=== PATIENT | male | born 1955 | race Caucasian/White ===

== ENCOUNTER 2019-12-11 12:46 | Emergency (ER) | payer MEDICARE, SELFPAY ==
[2019-12-11] VITALS (37 sets, daily range): BP systolic 117–250; BP diastolic 77–161; PULSE 59–124; RESP 12–28; TEMP 36.6; O2SAT 91–100
[2019-12-11] MEDS: Succinylcholine 100 MG/5 ML SYR IVP (12:53)
[2019-12-11] MEDS: Etomidate 20 MG/10 ML VIAL IVP (12:53)
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
[2019-12-11 13:10] LABS: Abs Immature Grans 0.13 k/cumm (0.0-0.09); Absolute Basophil Count 0.05 k/cumm (0.0-0.2); Absolute Eosinophil Count 0.04 k/cumm (0.0-0.7); Absolute Lymphocyte Count 2.74 k/cumm (1.2-3.4); Absolute Monocyte Count 1.08 k/cumm (0.11-0.7); Basophils % 0.4; Eosinophils % 0.3; HCT 42.7 % (40.0-50.0); HGB 14.9 g/dL (13.5-17.5); Mean Corp. HGB Concentration 34.9 g/dL (32.0-36.0); Mean Corpuscular Hemoglobin 35.6 pg (27.0-33.0); Mean Corpuscular Volume 101.9 fL (80-95); Mean Platelet Volume 10.5 fL (8.0-11.0); Monocytes % 8.3; Platelet Count 348 x1000/uL (130-400); RBC 4.19 m/cumm (4.50-6.00); RBC Distribution Width 14.8 % (11.8-14.1); White Blood Cell Count 13.05 k/cumm (4.4-10.8)
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
[2019-12-11] MEDS: Midazolam 2 MG/2 ML VIAL 4 MG IVP (13:14)
[2019-12-11] MEDS: MIDAZOLAM 50 MG in Normal Saline 90 ML IV (13:15)
[2019-12-11] MEDS: PROPOFOL 1,000 MG/100 ML BTL 4.218 MG IVPB (13:21)
[2019-12-11 13:22] LABS: PTT Activated 22.6 sec (21.0-31.4); Prothrombin Time 10.1 sec (9.3-11.0)
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
[2019-12-11 13:28] LABS: ALT 20 U/L (16-63); AST 26 U/L (15-37); Albumin 3.5 g/dL (3.4-5.0); Alkaline Phosphatase 81 U/L (46-116); Anion Gap 27.5 mmol/L (3-11); BUN 7 mg/dL (7-18); Bilirubin, Total 0.5 mg/dL (0.2-1.0); CO2 12.5 mmol/L (21.0-32.0); CREATININE 1.62 mg/dL (0.70-1.30); Chloride 99 mmol/L (98-107); Estimated GFR 42.84 (mL/min/1.73m2); Glucose 179 mg/dL (74-106); Sodium 139 mmol/L (136-145); Total Protein 7.5 g/dL (6.4-8.2)
[2019-12-11 13:29] LABS: Troponin I < 0.05 ng/mL (<0.06)
[2019-12-11] MEDS: Normal Saline - Diluent 50 ML VIAL IV (13:29)
[2019-12-11] MEDS: Omnipaque 350 MG/ML 100 ML BTL IJ (13:30)
--- NOTE | 2019-12-11 13:30 | DI.CT_ITS ---
CLINICAL HISTORY: TECHNIQUE: COMPARISON: No exams were available for comparison FINDINGS: Thoracic spine recons. Mild compression deformities are seen of T6, T11 and T12 vertebral bodies. These are of indeterminat e age. No definite acute thoracic spine fracture is identified. Degenerative changes are present th roughout the thoracic spine. Lumbar spine recons. No acute fracture or subluxation is seen in the lumbar spine. There are degenerative changes present throughout the lumbar spine. IMPRESSION: 1. No acute fractures or subluxations in the spine. 2. Mild compression deformities of indeterminate age are seen of the vertebral bodies of T6, T11 and T12.
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
[2019-12-11 13:50] LABS: ETHANOL BLOOD < 3.0 mg/dL (<3)
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
[2019-12-11 14:26] LABS: BE -3.3 mmol/L (-3-3); HCO3 23 mmol/L (22-28); pCO2 45 mmHg (34-47); pH 7.31 (7.35-7.45); pO2 105 mmHg (83-108); sO2 97 % (94-98); tCO2 21 mmol/L (22-29)
[2019-12-11 14:27] LABS: FIO2 60 %; Site Right Radial
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
[2019-12-11 14:39] LABS: Bilirubin Negative (Negative); Blood Small (Negative); Clarity Clear (Clear); Glucose Negative (Negative); Ketones Negative (Negative); Leukocyte Esterase Negative (Negative); Nitrite Negative (Negative); Specific Gravity 1.015 (1.005-1.025); Urobilinogen 0.2 EU/dL (Up TO 0.2); pH 6.5 (5-8)
[2019-12-11 14:47] LABS: Bacteria Negative HPF (Negative); C & S Indicated? Yes; Casts Negative LPF (Negative); Crystals Negative HPF (Negative); Epithelial Cells Few HPF (Negative); Mucus Negative (Negative)
[2019-12-11] MEDS: POTASSIUM CHLORIDE 10 MEQ/100 ML BAG 100 MEQ IVPB (14:52)
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
[2019-12-11 15:04] LABS: *AMPHETAMINES SCREEN URINE Negative (Negative); *BARBITURATES SCREEN URINE Negative (Negative); *BENZODIAZEPINES SCREEN URINE POSITIVE (Negative); Cannabinoids THC POSITIVE (Negative); Cocaine Screen,Urine Negative (Negative); METHADONE URINE SCREEN Negative (Negative); OPIATES URINE SCREEN Negative (Negative)
[2019-12-11 15:07] LABS: Tricyclic Antidepressants Negative (Negative)
[2019-12-11] MEDS: LORazepam 2 MG/ML VIAL IVP (15:09)
--- NOTE | 2019-12-11 15:35 | DI.RAD_ITS ---
EXAM: 2D digital imaging was performed. CLINICAL HISTORY: s/p ogtube. COMPARISON: No exams were available for comparison TECHNIQUE: Supine views of the abdomen performed. FINDINGS: BOWEL GAS PATTERN: Mildly dilated loops of bowel are seen in the abdomen. This may represent ileus. Obstruction cannot be entirely excluded. CALCIFICATIONS: No suspicious calcifications are seen. OSSEOUS STRUCTURES: Normal for age. OTHER FINDINGS: Contrast is seen in the mildly dilated renal collecting systems. The patient has a e nteric feeding tube with its tip in good position within the stomach. IMPRESSION: 1. Mildly dilated loops of bowel. This may represent ileus. Obstruction cannot be excluded. 2. Enteric feeding tube in good position with its tip in the stomach. DATA REPOSITORY: RADIATION DOSE DELIVERED:
--- NOTE | 2019-12-11 15:47 | DI.VRAD_ITS ---
PROCEDURE INFORMATION: Exam: XR Abdomen, 1 View Exam date and time: 12/11/2019 3:35 PM Age: 64 years old Clinical indication: Device placement; Gi device; Nasogastric tube TECHNIQUE: Imaging protocol: XR of the abdomen. Views: Frontal supine view of the abdomen. 1 View. COMPARISON: CT CHEST/ABD/PEL W 12/11/2019 1:58 PM FINDINGS: Tubes, catheters and devices: An enteric feeding tube is present, with its tip located in the stomach in good position. Gastrointestinal tract: Multiple loops of distended bowel may represent obstruction or ileus. Bones/joints: Unremarkable. IMPRESSION: 1. Multiple loops of distended bowel may represent obstruction or ileus. 2. An enteric feeding tube is present, with its tip located in the stomach in good position. Dictated and Authenticated by: Clarence Espino MD. Ordering:KING Pelayo MD
[2019-12-11] MEDS: PROPOFOL 1,000 MG/100 ML BTL 52.3 MG IVPB (16:04)
[2019-12-12 15:01] LABS: COVID-19 RT-PCR UVMMC Result Negative (Negative)
== END 2019-12-11 16:31 | disposition short-term general hospital (02) ==
PROVIDERS: Physician Assistant; Emergency Provider Emergency Medicine
DX: R41.82 Altered mental status, unspecified (principal); G40.909 Epilepsy, unspecified, not intractable, without status epilepticus; T46.5X6A Underdosing of other antihypertensive drugs, initial encounter; Z91.14 Patient's other noncompliance with medication regimen; R40.20 Unspecified coma; F10.20 Alcohol dependence, uncomplicated; R93.41 Abnormal radiologic findings on diagnostic imaging of renal pelvis, ureter, or bladder; J98.11 Atelectasis; I10 Essential (primary) hypertension
CPT/HCPCS: 31500; 36415; 51702; 71045; 74177; 80053; 80307; 82805; 86850; 86900; 86901; 93005; 96365; 96366; 96368; 99291; U0003; 36600; 70450; 71260; 72125; 74018; 80320; 81003; 81015; 83735; 84484; 85025; 85610; 85730; 87086; 93010; J2060; J2250; J3480; J3490

== ENCOUNTER 2020-06-14 21:20 | Outpatient (REF) | payer MEDICARE, SELFPAY ==
[2020-06-14 21:12] LABS: Anion Gap 5.9 mmol/L (3-11); BUN 13 mg/dL (7-18); CO2 29.1 mmol/L (21.0-32.0); CREATININE 1.11 mg/dL (0.70-1.30); Calcium 9.2 mg/dL (8.5-10.1); Calculated LDL 133 mg/dL (<100); Chloride 96 mmol/L (98-107); Cholesterol 192 mg/dL (<200); Glucose 91 mg/dL (74-106); HDL Cholesterol 38 mg/dL (40-60); Potassium 4.8 mmol/L (3.5-5.1); Sodium 131 mmol/L (136-145); Triglyceride 106 mg/dL (<150)
[2020-06-14 21:26] LABS: Hemoglobin A1C 5.3 % (<5.7)
== END 2020-06-14 21:40 ==
LOC: LBN 21:20
PROVIDERS: PCP Nurse Practitioner Family; Visit Provider Nurse Practitioner Family
DX: R73.01 Impaired fasting glucose (principal); I10 Essential (primary) hypertension
CPT/HCPCS: 80048; 80061; 83036

== ENCOUNTER 2020-08-21 12:52 | Emergency (ER) | payer MEDICARE, SELFPAY ==
[2020-08-21] VITALS (64 sets, daily range): BP systolic 126–248; BP diastolic 82–158; PULSE 97–127; RESP 12–56; TEMP 38.1–39.3; O2SAT 94–100
--- NOTE | 2020-08-21 12:30 | RT.EKG_ITS ---
APPROVED REPORT Exam: Resting ECG Patient Location: E HR:109 bpm ECG Measurements Heart Rate 109 AXIS MS 181 P 65 QRSd 149 QRS 245 QT 344 T 37 QTc 465 Conclusion Sinus tachycardia...rate> 99 I have reviewed and interpreted ECG and agree with software generated interpretation.
[2020-08-21] MEDS: LORazepam 2 MG/ML VIAL (12:59)
[2020-08-21] MEDS: Normal Saline 1,000 ML 1000 ML IV (13:00)
--- NOTE | 2020-08-21 13:00 | DI.CT_ITS ---
EXAM: CT HEAD CERVICAL SPINE WO COMPARISON: CT CT HEAD CERVICAL SPINE WO from 12/11/2019 FINDINGS: CT examination of the cervical spine was performed without contrast administration. There are moderate degenerative changes of the cervical spine. There is no evidence of acute cervical spine fracture or dislocation. Intervertebral disc spaces are well maintained. Tracheolaryngeal structures appear intact. No cervical mass or adenopathy. Noncontrast cranial CT was performed. There is moderate generalized cerebral atrophy. No evidence of acute intracranial hemorrhage, mass effect, or midline shift. No calvarial fracture. The orbital and temporal bone structures appear intact. Visualized mastoid air cells and paranasal sinuses appear clear. IMPRESSION: No evidence of acute cervical spine injury. No evidence of acute intracranial injury. RADIATION DOSE DELIVERED: 1,824.36mGy.cm Total DLP 1,824.36mGy.cm Total DLP DATA REPOSITORY: All CT scans at this facility are submitted to the National Radiology Data Registry (NRDR) Dose Index Registry (DIR) with the [employer] ([employer]). RADIATION OPTIMIZATION: All CT scans at this facility use at least one of these dose optimization te chniques: automated exposure control; mA and/or kV adjustment per patient size (includes targeted exa ms where dose is matched to clinical indication); or iterative reconstruction.
[2020-08-21] MEDS: Etomidate 20 MG/10 ML VIAL IVP (13:01)
[2020-08-21] MEDS: Succinylcholine 200 MG/10 ML VIAL 100 MG IVP (13:02)
[2020-08-21] MEDS: PROPOFOL 1,000 MG/100 ML BTL 2.5 MG (13:13)
--- NOTE | 2020-08-21 13:15 | DI.CT_ITS ---
EXAM: CT CHEST PE ABD PELVIS W TECHNIQUE: CT examination of the chest, abdomen, and pelvis was performed with bolus infusion of 100 cc of Omnipaque 350. COMPARISON: CT CT THORACIC LUMBAR SPINE REC from 12/11/[address] CHEST/ABD/PEL W from 12/11/2019 FINDINGS: There are endotracheal and nasogastric tubes in position. The NG tube terminates in the fundus of th e stomach. ET tube terminates in appropriate position in trachea about 3.5 cm above the brooke. There is no evidence of a thoracic vascular injury. Ascending thoracic aorta is mildly ectatic at 40 millimeters. There is predominant collapse of the left lower lobe, there is narrowing of the left l ower lobe bronchus, no gross hilar mass but the possibility of endobronchial obstruction is not exclu ded. Note is also made dependent atelectasis base.. No pneumothorax or pleural effusion. No mediast inal hematoma. No adenopathy in the chest. Tracheobronchial tree appears intact. The liver is grossly unremarkable although obscured by motion artifact. Pancreas shows multiple calc ifications and atrophy period. Gallbladder and bile ducts are normal. Spleen is not identified, correlation requested regarding history of splenectomy. Adrenals appear normal bilaterally. There is bilateral hydronephrosis and hydroureter to the level of the urinary bladder. There is a Fo dede catheter in the urinary bladder. There appears to be significant wall thickening the bladder sidra dder is collapsed. Bladder floor mass not excluded, prostatic enlargement noted with heterogeneous i rregular appearance of the prostate, nonspecific. No urinary tract calcifications seen. No renal ma ss identified apart from apparent small cyst of the upper pole of the left kidney. No abdominal or pelvic vascular injury seen. There is approximately 50 percent luminal diameter sten osis of the celiac trunk at its origin. No other significant visceral branch stenosis seen. No abdo juan j aortic aneurysm. No abdominal or pelvic adenopathy. No significant abdominal wall hernia or he matoma. No evidence of bowel injury. There are compression fractures of the T12 and L1 vertebral bodies which were not present on prior CT examination of December 11, 2019. There is mild loss of height of T12 and L1 vertebral bodies and mild r etropulsion superior portions of the posterior vertebral cortex of both T12 and L1, approximately 4 m illimeters retropulsed at T12 and 5 millimeters retropulsed at L1. No posterior element fracture curtis ntified involving either vertebral body. Old multiple thoracic compression fractures seen as noted o n prior CT. IMPRESSION: ET tube and NG tube in appropriate position. Left lower lobe collapse and right lower lobe dependent atelectasis. Endobronchial lesion of left lo wer lobe bronchus not excluded. T12 and L1 vertebral body compression fractures which appear to be acute, mild loss of height of vert ebral body, 4 millimeter retropulsion posterior cortex T12 and 5 millimeter retropulsion posterior co rtex L1. Bilateral hydronephrosis and hydroureter, markedly thickened urinary bladder wall, Gutierrez catheter in position, prostate enlargement and heterogeneous appearance, bladder floor mass not excluded. Cystos copy recommended for further evaluation. No other significant acute findings. RADIATION DOSE DELIVERED: 1,200.27mGy.cm Total DLP 1,200.27mGy.cm Total DLP DATA REPOSITORY: All CT scans at this facility are submitted to the National Radiology Data Registry (NRDR) Dose Index Registry (DIR) with the [employer] ([employer]). RADIATION OPTIMIZATION: All CT scans at this facility use at least one of these dose optimization te chniques: automated exposure control; mA and/or kV adjustment per patient size (includes targeted exa ms where dose is matched to clinical indication); or iterative reconstruction.
[2020-08-21 13:16] LABS: Lactate 9.3 mmol/L (0.6-1.4)
[2020-08-21 13:17] LABS: Abs Immature Grans 0.46 10^3/uL (0.0-0.06); HCT 50.4 % (40.0-50.0); HGB 16.8 g/dL (13.5-17.5); Immature Grans % 1.5; MCH 32.6 pg (27.0-33.0); MCHC 33.3 % (32.0-36.0); MCV 97.9 fL (80-95); MPV 9.7 fL (8.0-11.0); Nucleated RBC 0 %; RBC 5.15 10^6/uL (4.36-5.78); RDW 14.6 % (11.8-14.1); RDW-SD 53.2 fL
[2020-08-21 13:18] LABS: Source Nasopharynx
[2020-08-21] MEDS: PROPOFOL 1,000 MG/100 ML BTL 2.49 MG IVPB (13:20)
[2020-08-21 13:26] LABS: WBC 29.87 10^3/uL (4.4-10.8)
--- NOTE | 2020-08-21 13:27 | ED.GENADUL_ITS ---
Discharge Plan Disposition Patient Disposition: [facility] Condition: Critical Discharge Details Clinical Impression: Unresponsive state, Seizure, History of alcohol abuse, Pneumonia, Bladder outlet obstruction, Burst fracture of lumbar vertebra, Burst fracture of T12 vertebra Primary Care Provider: Lizeth Marshall ED Provider: Miya Canas Home Meds and New Rx's Prescriptions: No Action levetiracetam 500 mg tablet 500 mg PO BID Qty: 180 RF: 4 amlodipine 5 mg tablet 5 mg PO DAILY Qty: 90 RF: 4 lisinopril 40 mg tablet 40 mg PO DAILY Qty: 90 RF: 4 Discharge Data Discharge Date/Time-TO BE ENTERED AT DEPARTURE: 08/21/20 18:09 Medical Decision Making 55-year-old male with a history of alcohol abuse, alcohol withdrawal seizure, hypertension, Ric-Pick disease and splenectomy presents after found unresponsive at home incontinent of urine. EMS reported glucose 130. EMS reported a 2-minute tonic-clonic seizure in route for which they gave Versed and called the ED advising of possible need for intubation on arrival. Review of records note that patient had been intubated for airway protection for alcohol withdrawal seizure last year. Patient unresponsive and breathing on arrival with bag mask ventilations being given. Heart rate 120s and sinus on the monitor. Oxygen saturation 95% with BMP. Blood pressure significantly hypertensive. Patient intubated shortly after arrival after 20 of etomidate and 100 mg of succinylcholine given. Patient appeared to have a brief episode approximately 10 to 20 seconds of seizure like activity for which he was given 2 mg of Ativan. Portable chest x-ray at bedside confirmed ET tube placement. Patient has coarse breath sounds bilaterally, worse on right side. No evidence of trauma on exam. Abdomen soft without rigidity. 1330 --patient noted to be seizing by nursing. 2 g of Ativan and 2 g of Keppra IV ordered. 1430 -- CT head and cervical spine negative. Patient remaining sedated on propofol and Versed drip. Labs reviewed. White blood cell count 29. ABG notes findings consistent with a metabolic acidosis with a pH of 7.29, PCO2 40, PO2 154, bicarb 19. Lactate 9.3. Troponin elevated but indeterminate at 0.1. Urinalysis negative for infection. UDS positive for THC. Alcohol level negative. Rapid Covid swab negative. EKG notes a rate of 109, sinus, no STEMI, nondiagnostic. Case discussed with hospitalist will accepts patient for admission. 1530 -- CT chest abdomen pelvis notes left lower lobe collapse/atelectasis versus endobronchial lesion. Also noted T12 and L1 compression fractures with posterior retropulsion. Also noted bilateral hydronephrosis and hydroureter with prostatic enlargement, bladder wall mass not excluded. Imaging reviewed with Dr. Pickering who notes that this is likely consistent with chronic bladder outlet obstruction and agreed with continuing Gutierrez which was placed shortly after his arrival to the ED. He recommends continued treatment for his acute medical issues at this time and will evaluate once he is improving and stabilized for likely cystoscopy. 1630 --imaging reviewed with Dr. Ludwig who noted the T12 and L1 compression fractures to be acute both fractures and is recommending transfer to [facility] to be evaluated by spine as he is unresponsive and unable to examine, needs a brace which is not available here as well as a dedicated MRI. 1645 --repeat troponin uptrending at 0.21. Repeat EKG notes a rate of 103, sinus, no STEMI, nondiagnostic. Case discussed with [facility] critical care Dr. Howell who accepts patient for transfer. Discussed with patient's sister Rose Marie who is listed as his contact lens blocker who ca lled the ER. She was informed of patient's results and plan. Patient has a dog at home and she or her sister will check up on him. Medical Records Medical records reviewed: Yes I reviewed the patient's medical records. Imaging Data Radiologic Study: Radiologist's impression: XR PORTABLE CHEST AP CLINICAL HISTORY: ams TECHNIQUE: COMPARISON: CR,XR XR PORTABLE CHEST AP POST LINE from 12/11/[address] THORACIC LUMBAR SPINE REC from 12/11/2019 FINDINGS: Portable AP view of the chest was obtained at 1330 hours. There is an endotracheal tube in good position. There is an NG tube in good position. Cardiac size is within normal limits. Retrocardiac portion of the lung is obscured. Question minimal infiltrates present in right mid lung, otherwise lungs appear clear. No gross pleural effusion identified on this frontal film. IMPRESSION: Question minimal right mid lung infiltrate, appropriate follow-up radiographs requested. Retrocardiac radiodensities not excluded, follow-up PA and lateral chest or chest CT should be considered. CT HEAD CERVICAL SPINE WO COMPARISON: CT CT HEAD CERVICAL SPINE WO from 12/11/2019 FINDINGS: CT examination of the cervical spine was performed without contrast administration. There are moderate degenerative changes of the cervical spine. There is no evidence of acute cervical spine fracture or dislocation. Intervertebral disc spaces are well maintained. Tracheolaryngeal structures appear intact. No cervical mass or adenopathy. Noncontrast cranial CT was performed. There is moderate generalized cerebral atrophy. No evidence of acute intracranial hemorrhage, mass effect, or midline shift. No calvarial fracture. The orbital and temporal bone structures appear intact. Visualized mastoid air cells and paranasal sinuses appear clear. IMPRESSION: No evidence of acute cervical spine injury. No evidence of acute intracranial injury. CT CHEST PE ABD PELVIS W TECHNIQUE: CT examination of the chest, abdomen, and pelvis was performed with bolus infusion of 100 cc of Omnipaque 350. COMPARISON: CT CT THORACIC LUMBAR SPINE REC from 12/11/[address] CHEST/ABD/PEL W from 12/11/2019 FINDINGS: There are endotracheal and nasogastric tubes in position. The NG tube terminates in the fundus of the stomach. ET tube terminates in appropriate position in trachea about 3.5 cm above the brooke. There is no evidence of a thoracic vascular injury. Ascending thoracic aorta is mildly ectatic at 40 millimeters. There is predominant collapse of the left lower lobe, there is narrowing of the left lower lobe bronchus, no gross hilar mass but the possibility of endobronchial obstruction is not excluded. Note is also made dependent atelectasis base.. No pneumothorax or pleural effusion. No mediastinal hematoma. No adenopathy in the chest. Tracheobronchial tree appears intact. The liver is grossly unremarkable although obscured by motion artifact. Pancreas shows multiple calcifications and atrophy period. Gallbladder and bile ducts are normal. Spleen is not identified, correlation requested regarding history of splenectomy. Adrenals appear normal bilaterally. There is bilateral hydronephrosis and hydroureter to the level of the urinary bladder. There is a Gutierrez catheter in the urinary bladder. There appears to be significant wall thickening the bladder bladder is collapsed. Bladder floor mass not excluded, prostatic enlargement noted with heterogeneous irregular appearance of the prostate, nonspecific. No urinary tract calcifications seen. No renal mass identified apart from apparent small cyst of the upper pole of the left kidney. No abdominal or pelvic vascular injury seen. There is approximately 50 percent luminal diameter stenosis of the celiac trunk at its origin. No other significant visceral branch stenosis seen. No abdominal aortic aneurysm. No abdominal or pelvic adenopathy. No significant abdominal wall hernia or hematoma. No evidence of bowel injury. There are compression fractures of the T12 and L1 vertebral bodies which were not present on prior CT examination of December 11, 2019. There is mild loss of height of T12 and L1 vertebral bodies and mild retropulsion superior portions of the posterior vertebral cortex of both T12 and L1, approximately 4 millimeters retropulsed at T12 and 5 millimeters retropulsed at L1. No posterior element fracture identified involving either vertebral body. Old multiple thoracic compression fractures seen as noted on prior CT. IMPRESSION: ET tube and NG tube in appropriate position. Left lower lobe collapse and right lower lobe dependent atelectasis. Endobronchial lesion of left lower lobe bronchus not excluded. T12 and L1 vertebral body compression fractures which appear to be acute, mild loss of height of vertebral body, 4 millimeter retropulsion posterior cortex T12 and 5 millimeter retropulsion posterior cortex L1. Bilateral hydronephrosis and hydroureter, markedly thickened urinary bladder wall, Gutierrez catheter in position, prostate enlargement and heterogeneous appearance, bladder floor mass not excluded. Cystoscopy recommended for further evaluation. No other significant acute findings. Lab Data Lab results reviewed: Yes I reviewed the patient's lab results. Labs: 08/21/20 13:01 Blood Blood Culture - Pending 08/21/20 13:54 Urine - Reflex from Ua Urine Culture - Pending 08/21/20 13:27 Blood Blood Culture - Pending Laboratory Tests Range/Units 08/21/20 08/21/20 08/21/20 13:01 13:01 13:01 WBC (4.4-10.8) 10^3/uL 29.87 H* RBC (4.36-5.78) 10^6/uL 5.15 Hgb (13.5-17.5) g/dL 16.8 Hct (40.0-50.0) % 50.4 H MCV (80-95) fL 97.9 H MCH (27.0-33.0) pg 32.6 MCHC (32.0-36.0) % 33.3 RDW (11.8-14.1) % 14.6 H Plt Count (130-400) 10^3/uL 457 H MPV (8.0-11.0) fL 9.7 Immature Gran % 1.5 Neutrophils % 91.4 Lymphocytes % 2.7 Monocytes % 4.1 Eosinophils % 0.0 Basophils % 0.3 Nucleated RBC % % 0 Absolute Neutrophils (1.2-6.7) 10^3/uL 27.30 H Absolute Lymphocytes (1.2-3.4) 10^3/uL 0.81 L Absolute Monocytes (0.1-0.8) 10^3/uL 1.22 H Absolute Eosinophils (0.0-0.7) 10^3/uL 0.00 Absolute Basophils (0.0-0.2) 10^3/uL 0.09 RBC Morphology See below Poikilocytosis 1+ PT (9.3-11.0) sec 10.1 INR (0.9-1.1) 1.0 APTT (21.0-27.5) sec 27.9 H ABG Sample Site ABG pH (7.35-7.45) ABG pCO2 (35-45) mmHg ABG pO2 (80-105) mmHg ABG HCO3 (22-26) mmol/L ABG Total CO2 (23-27) mmol/L ABG O2 Saturation (95-98) % ABG Base Excess (-2-3) mmol/L VBG Lactate (0.6-1.4) mmol/L Oxygen Liter Flow L FiO2 % Sodium (136-145) mmol/L 142 Potassium (3.5-5.1) mmol/L 3.7 Chloride (98-107) mmol/L 104 Carbon Dioxide (21.0-32.0) mmol/L 17.1 L Anion Gap (3-11) mmol/L 20.9 H BUN (7-18) mg/dL 17 Creatinine (0.70-1.30) mg/dL 1.7 H Estimated GFR/1.73 m2 (mL/min/1.73m2) 40.40 Glucose (74-106) mg/dL 132 H Calcium (8.5-10.1) mg/dL 9.6 Magnesium (1.8-2.4) mg/dL 2.7 H Total Bilirubin (0.2-1.0) mg/dL 0.4 AST (15-37) U/L 56 H ALT (16-63) U/L 43 Alkaline Phosphatase (46-116) U/L 119 H Troponin I (<0.06) ng/mL 0.10 H* Total Protein (6.4-8.2) g/dL 9.2 H Albumin (3.4-5.0) g/dL 4.1 Procalcitonin ng/mL Urine Color (Yellow) Urine Clarity (Clear) Urine pH (5-8) Ur Specific [place] (1.005-1.025) Urine Protein (Negative) mg/dL Urine Ketones (Negative) mg/dL Urine Blood (Negative) Urine Nitrite (Negative) Urine Bilirubin (Negative) Urine Urobilinogen (Up TO 0.2) EU/dL Ur Leukocyte Esterase (Negative) Urine RBC (0-2) HPF Urine WBC (0-5) HPF Ur Epithelial Cells (Negative) HPF Urine Crystals (Negative) HPF Urine Bacteria (Negative) HPF Urine Casts (Negative) LPF Urine Mucus (Negative) Ur Culture Indicated? Urine Glucose (Negative) mg/dL Urine Opiates Screen (Negative) Urine Methadone Screen (Negative) Ur Barbiturates Screen (Negative) Ur Tricyclics Screen (Negative) Ur Amphetamines Screen (Negative) U Benzodiazepines Scrn (Negative) Urine Cocaine Screen (Negative) Ur THC Screen (Negative) Ethyl Alcohol (<3) mg/dL COVID-19 Source SARS-CoV-2 (PCR) (Negative) Influenza Type A (PCR) (Negative) Influenza Type B (PCR) (Negative) RSV (PCR) (Negative) Range/Units 08/21/20 08/21/20 08/21/20 13:01 13:01 13:01 WBC (4.4-10.8) 10^3/uL RBC (4.36-5.78) 10^6/uL Hgb (13.5-17.5) g/dL Hct (40.0-50.0) % MCV (80-95) fL MCH (27.0-33.0) pg MCHC (32.0-36.0) % RDW (11.8-14.1) % Plt Count (130-400) 10^3/uL MPV (8.0-11.0) fL Immature Gran % Neutrophils % Lymphocytes % Monocytes % Eosinophils % Basophils % Nucleated RBC % % Absolute Neutrophils (1.2-6.7) 10^3/uL Absolute Lymphocytes (1.2-3.4) 10^3/uL Absolute Monocytes (0.1-0.8) 10^3/uL Absolute Eosinophils (0.0-0.7) 10^3/uL Absolute Basophils (0.0-0.2) 10^3/uL RBC Morphology Poikilocytosis PT (9.3-11.0) sec INR (0.9-1.1) APTT (21.0-27.5) sec ABG Sample Site ABG pH (7.35-7.45) ABG pCO2 (35-45) mmHg ABG pO2 (80-105) mmHg ABG HCO3 (22-26) mmol/L ABG Total CO2 (23-27) mmol/L ABG O2 Saturation (95-98) % ABG Base Excess (-2-3) mmol/L VBG Lactate (0.6-1.4) mmol/L 9.3 H* Oxygen Liter Flow L FiO2 % Sodium (136-145) mmol/L Potassium (3.5-5.1) mmol/L Chloride (98-107) mmol/L Carbon Dioxide (21.0-32.0) mmol/L Anion Gap (3-11) mmol/L BUN (7-18) mg/dL Creatinine (0.70-1.30) mg/dL Estimated GFR/1.73 m2 (mL/min/1.73m2) Glucose (74-106) mg/dL Calcium (8.5-10.1) mg/dL Magnesium (1.8-2.4) mg/dL Total Bilirubin (0.2-1.0) mg/dL AST (15-37) U/L ALT (16-63) U/L Alkaline Phosphatase (46-116) U/L Troponin I (<0.06) ng/mL Total Protein (6.4-8.2) g/dL Albumin (3.4-5.0) g/dL Procalcitonin ng/mL 0.1 Urine Color (Yellow) Urine Clarity (Clear) Urine pH (5-8) Ur Specific [place] (1.005-1.025) Urine Protein (Negative) mg/dL Urine Ketones (Negative) mg/dL Urine Blood (Negative) Urine Nitrite (Negative) Urine Bilirubin (Negative) Urine Urobilinogen (Up TO 0.2) EU/dL Ur Leukocyte Esterase (Negative) Urine RBC (0-2) HPF Urine WBC (0-5) HPF Ur Epithelial Cells (Negative) HPF Urine Crystals (Negative) HPF Urine Bacteria (Negative) HPF Urine Casts (Negative) LPF Urine Mucus (Negative) Ur Culture Indicated? Urine Glucose (Negative) mg/dL Urine Opiates Screen (Negative) Urine Methadone Screen (Negative) Ur Barbiturates Screen (Negative) Ur Tricyclics Screen (Negative) Ur Amphetamines Screen (Negative) U Benzodiazepines Scrn (Negative) Urine Cocaine Screen (Negative) Ur THC Screen (Negative) Ethyl Alcohol (<3) mg/dL < 3.0 COVID-19 Source SARS-CoV-2 (PCR) (Negative) Influenza Type A (PCR) (Negative) Influenza Type B (PCR) (Negative) RSV (PCR) (Negative) Range/Units 08/21/20 08/21/20 08/21/20 13:15 13:35 13:54 WBC (4.4-10.8) 10^3/uL RBC (4.36-5.78) 10^6/uL Hgb (13.5-17.5) g/dL Hct (40.0-50.0) % MCV (80-95) fL MCH (27.0-33.0) pg MCHC (32.0-36.0) % RDW (11.8-14.1) % Plt Count (130-400) 10^3/uL MPV (8.0-11.0) fL Immature Gran % Neutrophils % Lymphocytes % Monocytes % Eosinophils % Basophils % Nucleated RBC % % Absolute Neutrophils (1.2-6.7) 10^3/uL Absolute Lymphocytes (1.2-3.4) 10^3/uL Absolute Monocytes (0.1-0.8) 10^3/uL Absolute Eosinophils (0.0-0.7) 10^3/uL Absolute Basophils (0.0-0.2) 10^3/uL RBC Morphology Poikilocytosis PT (9.3-11.0) sec INR (0.9-1.1) APTT (21.0-27.5) sec ABG Sample Site Right radial ABG pH (7.35-7.45) 7.29 L ABG pCO2 (35-45) mmHg 40 ABG pO2 (80-105) mmHg 164 H ABG HCO3 (22-26) mmol/L 19 L ABG Total CO2 (23-27) mmol/L 17 L ABG O2 Saturation (95-98) % 98 ABG Base Excess (-2-3) mmol/L -7 L VBG Lactate (0.6-1.4) mmol/L Oxygen Liter Flow L A/c 18,450 FiO2 % 100 Sodium (136-145) mmol/L Potassium (3.5-5.1) mmol/L Chloride (98-107) mmol/L Carbon Dioxide (21.0-32.0) mmol/L Anion Gap (3-11) mmol/L BUN (7-18) mg/dL Creatinine (0.70-1.30) mg/dL Estimated GFR/1.73 m2 (mL/min/1.73m2) Glucose (74-106) mg/dL Calcium (8.5-10.1) mg/dL Magnesium (1.8-2.4) mg/dL Total Bilirubin (0.2-1.0) mg/dL AST (15-37) U/L ALT (16-63) U/L Alkaline Phosphatase (46-116) U/L Troponin I (<0.06) ng/mL Total Protein (6.4-8.2) g/dL Albumin (3.4-5.0) g/dL Procalcitonin ng/mL Urine Color (Yellow) Yellow Urine Clarity (Clear) Sl cloudy Urine pH (5-8) 5.5 Ur Specific [place] (1.005-1.025) 1.025 Urine Protein (Negative) mg/dL 30 H Urine Ketones (Negative) mg/dL Negative Urine Blood (Negative) Moderate H Urine Nitrite (Negative) Negative Urine Bilirubin (Negative) Negative Urine Urobilinogen (Up TO 0.2) EU/dL 0.2 Ur Leukocyte Esterase (Negative) Negative Urine RBC (0-2) HPF 10-20 H Urine WBC (0-5) HPF 0-2 Ur Epithelial Cells (Negative) HPF Few Urine Crystals (Negative) HPF Negative Urine Bacteria (Negative) HPF Few Urine Casts (Negative) LPF 0-2 coarse granular Urine Mucus (Negative) Trace Ur Culture Indicated? Yes Urine Glucose (Negative) mg/dL Negative Urine Opiates Screen (Negative) Urine Methadone Screen (Negative) Ur Barbiturates Screen (Negative) Ur Tricyclics Screen (Negative) Ur Amphetamines Screen (Negative) U Benzodiazepines Scrn (Negative) Urine Cocaine Screen (Negative) Ur THC Screen (Negative) Ethyl Alcohol (<3) mg/dL COVID-19 Source Nasopharynx SARS-CoV-2 (PCR) (Negative) Negative Influenza Type A (PCR) (Negative) Negative Influenza Type B (PCR) (Negative) Negative RSV (PCR) (Negative) Negative Range/Units 08/21/20 08/21/20 13:54 16:00 WBC (4.4-10.8) 10^3/uL RBC (4.36-5.78) 10^6/uL Hgb (13.5-17.5) g/dL Hct (40.0-50.0) % MCV (80-95) fL MCH (27.0-33.0) pg MCHC (32.0-36.0) % RDW (11.8-14.1) % Plt Count (130-400) 10^3/uL MPV (8.0-11.0) fL Immature Gran % Neutrophils % Lymphocytes % Monocytes % Eosinophils % Basophils % Nucleated RBC % % Absolute Neutrophils (1.2-6.7) 10^3/uL Absolute Lymphocytes (1.2-3.4) 10^3/uL Absolute Monocytes (0.1-0.8) 10^3/uL Absolute Eosinophils (0.0-0.7) 10^3/uL Absolute Basophils (0.0-0.2) 10^3/uL RBC Morphology Poikilocytosis PT (9.3-11.0) sec INR (0.9-1.1) APTT (21.0-27.5) sec ABG Sample Site ABG pH (7.35-7.45) ABG pCO2 (35-45) mmHg ABG pO2 (80-105) mmHg ABG HCO3 (22-26) mmol/L ABG Total CO2 (23-27) mmol/L ABG O2 Saturation (95-98) % ABG Base Excess (-2-3) mmol/L VBG Lactate (0.6-1.4) mmol/L Oxygen Liter Flow L FiO2 % Sodium (136-145) mmol/L Potassium (3.5-5.1) mmol/L Chloride (98-107) mmol/L Carbon Dioxide (21.0-32.0) mmol/L Anion Gap (3-11) mmol/L BUN (7-18) mg/dL Creatinine (0.70-1.30) mg/dL Estimated GFR/1.73 m2 (mL/min/1.73m2) Glucose (74-106) mg/dL Calcium (8.5-10.1) mg/dL Magnesium (1.8-2.4) mg/dL Total Bilirubin (0.2-1.0) mg/dL AST (15-37) U/L ALT (16-63) U/L Alkaline Phosphatase (46-116) U/L Troponin I (<0.06) ng/mL 0.21 H* Total Protein (6.4-8.2) g/dL Albumin (3.4-5.0) g/dL Procalcitonin ng/mL Urine Color (Yellow) Urine Clarity (Clear) Urine pH (5-8) Ur Specific [place] (1.005-1.025) Urine Protein (Negative) mg/dL Urine Ketones (Negative) mg/dL Urine Blood (Negative) Urine Nitrite (Negative) Urine Bilirubin (Negative) Urine Urobilinogen (Up TO 0.2) EU/dL Ur Leukocyte Esterase (Negative) Urine RBC (0-2) HPF Urine WBC (0-5) HPF Ur Epithelial Cells (Negative) HPF Urine Crystals (Negative) HPF Urine Bacteria (Negative) HPF Urine Casts (Negative) LPF Urine Mucus (Negative) Ur Culture Indicated? Urine Glucose (Negative) mg/dL Urine Opiates Screen (Negative) Negative Urine Methadone Screen (Negative) Negative Ur Barbiturates Screen (Negative) Negative Ur Tricyclics Screen (Negative) Negative Ur Amphetamines Screen (Negative) Negative U Benzodiazepines Scrn (Negative) Negative Urine Cocaine Screen (Negative) Negative Ur THC Screen (Negative) Positive A Ethyl Alcohol (<3) mg/dL COVID-19 Source SARS-CoV-2 (PCR) (Negative) Influenza Type A (PCR) (Negative) Influenza Type B (PCR) (Negative) RSV (PCR) (Negative) ECG Data Attestation: I personally reviewed and interpreted this ECG (s) as follows: Interpretation: #1 --rate of 109, sinus, no acute ST elevation or depression. AK 181. QTc 465. #2 --Rate of 103, sinus, no acute ST elevation or depression. AK 140. QRS 151. QTc 465. HPI General Mode of arrival: ambulatory . Date/Time Provider Initiated Documentation: 08/21/20 13:27 . Limitations to Documentation: no limitations . Information obtained by: patient . HPI Narrative: Patient is a 65-year-old male with a history of alcohol abuse, previous alcohol withdrawal seizures, hypertension, Ric-Pick disease, splenectomy who was found unresponsive by his plow test driver at his residence. EMS reported that upon their arrival, patient was incontinent of urine and laying on his couch unresponsive. He did not a ppear to be moving all of his extremities and appeared to have a tongue laceration and was concerned about possible seizure versus stroke. He was unable to provide a history to EMS. EMS reported a 2-minute tonic-clonic seizure in route for which they gave Versed and called the ED informing us of possible need for intubation. Related Data Home Medications Medication Instructions Recorded Confirmed lisinopril 40 mg tablet 40 mg PO DAILY #90 tab 06/14/20 08/21/20 amlodipine 5 mg tablet 5 mg PO DAILY #90 tab 08/20/20 08/21/20 levetiracetam 500 mg tablet 500 mg PO BID #180 tab-cap 08/20/20 08/21/20 Previous Rx's Medication Instructions Recorded lisinopril 40 mg tablet 40 mg PO DAILY #90 tab 06/14/20 amlodipine 5 mg tablet 5 mg PO DAILY #90 tab 08/20/20 levetiracetam 500 mg tablet 500 mg PO BID #180 tab-cap 08/20/20 Allergies Allergy/AdvReac Type Severity Reaction Status Date / Time No Known Allergies Allergy Unverified 08/20/20 09:51 General Stated Complaint: AMS/LOC ERIKA: 1 Review of Systems Unobtainable due to mental status [facility] Medical History Alcohol use disorder Alcohol withdrawal seizure BPH (benign prostatic hyperplasia) Essential hypertension Neimann Pick disease Surgical History S/P splenectomy Family History Mother No problems noted. Father Heart disease Alcohol abuse Myocardial infarction Sister No problems noted. Sister Lung cancer Maternal Grandfather No problems noted. Maternal Grandmother No problems noted. Paternal Grandfather No problems noted. Paternal Grandmother No problems noted. Social History Smoking/Tobacco Use Status: Never Second Hand Exposure: Yes Smoking risk assessment performed?: Yes Alcohol Intake: current Alcohol Intake frequency: 0-2 drinks per day Alcohol type: beer Drug use: Never Substance use type: former substance user and marijuana Details: ETHOL found in vehicle per EMS. Patient ubable to answer questions Caregiver/Support person: No Housing: house Do you need help understanding health information?: Rarely Pets and animals: Yes Pets and animals: dog(s) Sexually active: No Do you think of yourself as: straight/heterosexual Current gender identity: male What is your relationship status?: never How often do you talk on the phone with friends or family?: once per week How often do you get together with friends or relatives?: decline to answer How often do you attend restorationist or restoration services?: decline to answer Do you belong to any clubs or organized social groups?: no Panel score (0-1 are the most socially isolated patients): 0 What type of physical activity do you participate in: bicycling Duration: 30-45 minutes/day Frequency: 3-4 times per week Seatbelt use: sometimes Helmet use: No Drive intox or ride w/intox test driver: No Exam Const General: disheveled Orientation: obtunded HENLA Head: normal to inspection Ears: external ears normal General nose exam: external nose normal Face and sinus: normal facial exam Teeth and gingiva: edentulous Eyes General: appearance normal, both eyes and all related structures Eyelids: eyelids normal Pupils: pupil size bilaterally 2 Neck Neck: normal visual inspection Lymphatic: no lymphadenopathy noted Chest Chest: normal inspection of the chest Resp Effort & Inspection: normal respiratory effort Auscultation: clear to auscultation bilaterally Cardio Rate: tachycardic Rhythm: regular rhythm GI Inspection: normal to inspection Palpation: soft, not firm, no guarding, no hepatosplenomegaly, no masses and not rigid Auscultation: hypoactive bowel sounds Back/Spine/Pelvis Back: no CVA tenderness Skin General skin exam: no rashes or lesions noted Neuro General: patient obtunded Extrem General: normal to inspection and capillary refill normal Psych Appearance: disheveled Course Vital Signs Vital signs: Vital Signs Temperature 100.8 F H 08/21/20 13:24 Pulse 115 H 08/21/20 13:24 Respiratory Rate 23 08/21/20 13:24 Blood Pressure 162/92 H 08/21/20 13:24 Pulse Oximetry 99 08/21/20 13:24 Temperature 100.8 F H 08/21/20 13:24 Temperature Source Skin 08/21/20 13:24 Pulse 115 H 08/21/20 13:24 Respiratory Rate 23 08/21/20 13:24 Blood Pressure 162/92 H 08/21/20 13:24 Blood Pressure Position Supine 08/21/20 13:24 Pulse Oximetry 99 08/21/20 13:24 Oxygen Delivery Method Mechanical Ventilator 08/21/20 13:24 Oxygen Flow Rate 0 08/21/20 13:24 Lab/Test Results Lab/Test Results: 08/21/20 12:43 Blood Blood Culture - Pending 08/21/20 12:43 Blood Blood Culture - Pending Laboratory Tests Range/Units 08/21/20 13:01 VBG Lactate (0.6-1.4) mmol/L 9.3 H* Procedures Intubation Time out performed: Yes sedative: Etomidate Mg Given: 20 paralytic: Succinylcholine Mg Given: 100 Laryngoscope: other (glidescope) ET Tube Size: 7.5 Tube Secured Depth (cm): 27 Tube Secured Location: lips Tube Placement Confirmation: visualized tube passing through cords, equal breath sounds bilaterally, no breath sounds over epigastrum and confirmation by capnometry Patient Tolerated Procedure: well Intubation Complications: none Critical Care Time Critical Care Time Critical Care Time: Yes Total Critical Care Time: 60 Attestation: I spent 60 minutes of critical care time with this patient. This does not include time spent on separately reported billable procedures.
[2020-08-21 13:29] LABS: PTT Activated 27.9 sec (21.0-27.5); Prothrombin Time 10.1 sec (9.3-11.0)
[2020-08-21] MEDS: MIDAZOLAM 50 MG in Normal Saline 90 ML 8.3 MG IV (13:30)
[2020-08-21 13:32] LABS: Poikilocytes 1+
[2020-08-21 13:33] LABS: Platelet Count 457 10^3/uL (130-400)
[2020-08-21 13:34] LABS: ETHANOL BLOOD < 3.0 mg/dL (<3)
[2020-08-21 13:35] LABS: Absolute Lymphocyte Count 0.81 10^3/uL (1.2-3.4); Absolute Monocyte Count 1.22 10^3/uL (0.1-0.8); Basophils % 0.3; Lymphocytes % 2.7; Monocytes % 4.1; Neutrophils % 91.4
[2020-08-21 13:36] LABS: Absolute Basophil Count 0.09 10^3/uL (0.0-0.2); Diff Comment Agrees w/ Instrument
[2020-08-21] MEDS: LORazepam 2 MG/ML VIAL IVP (13:36)
[2020-08-21 13:38] LABS: BE -7 mmol/L (-2-3); HCO3 19 mmol/L (22-26); pCO2 40 mmHg (35-45); pH 7.29 (7.35-7.45); pO2 164 mmHg (80-105); sO2 98 % (95-98); tCO2 17 mmol/L (23-27)
[2020-08-21 13:38] LABS: ALT 43 U/L (16-63); AST 56 U/L (15-37); Albumin 4.1 g/dL (3.4-5.0); Alkaline Phosphatase 119 U/L (46-116); Anion Gap 20.9 mmol/L (3-11); BUN 17 mg/dL (7-18); Bilirubin, Total 0.4 mg/dL (0.2-1.0); CO2 17.1 mmol/L (21.0-32.0); CREATININE 1.7 mg/dL (0.70-1.30); Calcium 9.6 mg/dL (8.5-10.1); Chloride 104 mmol/L (98-107); Glucose 132 mg/dL (74-106); Magnesium 2.7 mg/dL (1.8-2.4); Potassium 3.7 mmol/L (3.5-5.1); Sodium 142 mmol/L (136-145); Total Protein 9.2 g/dL (6.4-8.2)
[2020-08-21 13:41] LABS: FIO2 100 %; Site Right Radial
--- NOTE | 2020-08-21 13:48 | DI.RAD_ITS ---
EXAM: XR PORTABLE CHEST AP CLINICAL HISTORY: ams TECHNIQUE: COMPARISON: CR,XR XR PORTABLE CHEST AP POST LINE from 12/11/[address] THORACIC LUMBAR SPINE REC from 12/11/2019 FINDINGS: Portable AP view of the chest was obtained at 1330 hours. There is an endotracheal tube in good posi tion. There is an NG tube in good position. Cardiac size is within normal limits. Retrocardiac por tion of the lung is obscured. Question minimal infiltrates present in right mid lung, otherwise lung s appear clear. No gross pleural effusion identified on this frontal film. IMPRESSION: Question minimal right mid lung infiltrate, appropriate follow-up radiographs requested. Retrocardia c radiodensities not excluded, follow-up PA and lateral chest or chest CT should be considered., RADIATION DOSE DELIVERED: Total DLP
[2020-08-21] MEDS: levETIRAcetam 2,000 MG in Normal Saline 100 ML 400 MG IVPB (13:55)
[2020-08-21 13:59] LABS: Bilirubin Negative (Negative); Blood Moderate (Negative); Clarity Sl Cloudy (Clear); Glucose Negative (Negative); Ketones Negative (Negative); Leukocyte Esterase Negative (Negative); Nitrite Negative (Negative); Specific Gravity 1.025 (1.005-1.025); Urobilinogen 0.2 EU/dL (Up TO 0.2); pH 5.5 (5-8)
[2020-08-21 14:05] LABS: COVID-19 PCR Negative (Negative); Influenza A PCR Negative (Negative); Influenza B PCR Negative (Negative); RSV PCR Negative (Negative)
[2020-08-21 14:07] LABS: Bacteria Few HPF (Negative); Crystals Negative HPF (Negative); Epithelial Cells Few HPF (Negative); Mucus Trace (Negative); WBC 0-2 HPF (0-5)
[2020-08-21 14:08] LABS: C & S Indicated? Yes; Casts 0-2 Coarse Granular LPF (Negative)
[2020-08-21 14:11] LABS: *AMPHETAMINES SCREEN URINE Negative (Negative); *BARBITURATES SCREEN URINE Negative (Negative); *BENZODIAZEPINES SCREEN URINE Negative (Negative); Cannabinoids THC POSITIVE (Negative); Cocaine Screen,Urine Negative (Negative); METHADONE URINE SCREEN Negative (Negative); OPIATES URINE SCREEN Negative (Negative)
[2020-08-21 14:12] LABS: Tricyclic Antidepressants Negative (Negative)
[2020-08-21] MEDS: Omnipaque 350 MG/ML 100 ML BTL IJ (14:41)
[2020-08-21] MEDS: ACETAMINOPHEN 1,000 MG/100 ML BTL 400 MG IVPB (15:07)
[2020-08-21] MEDS: PIPERACILLIN/TAZO 4.5 GM in Normal Saline 100 ML IVPB (15:30)
[2020-08-21 15:50] LABS: Procalcitonin 0.1 ng/mL
[2020-08-21] MEDS: MAGNESIUM SULFATE 8.12 MEQ, MULTIVITAMIN 10 ML, THIAMINE 100 MG, FOLIC ACID 1 MG in Nor... 168.867 MG IV (16:20)
[2020-08-21 16:21] LABS: Troponin I 0.21 ng/mL (<0.06)
--- NOTE | 2020-08-21 16:30 | RT.EKG_ITS ---
APPROVED REPORT Exam: Resting ECG Patient Location: E HR:103 bpm ECG Measurements Heart Rate 103 AXIS SC 140 P 64 QRSd 151 QRS 239 QT 354 T 39 QTc 465 Conclusion Sinus tachycardia...rate> 99 Nonspecific intraventricular conduction delay...QRSd >115mS, not LBBB/RBBB I have reviewed and interpreted ECG and agree with software generated interpretation.
[2020-08-21] MEDS: VANCOMYCIN/WATER (PEG) 1.25 GM/250 ML BAG IV (16:34)
--- NOTE | 2020-08-21 17:07 | NUR.NOTE ---
propofol bolus 100mcg [id number] and [id number] Note:
--- NOTE | 2020-08-21 17:17 | DI.CT_ITS ---
EXAM: CT THORACIC LUMBAR SPINE WO CLINICAL HISTORY: RECONS. TECHNIQUE: Imaging Protocol: Axial computed tomography images with coronal and sagittal reformatted images were created and reviewed. CONTRAST MATERIAL: Intravenous: None- Oral: None COMPARISON: CT CT THORACIC LUMBAR SPINE REC from 12/11/2019 FINDINGS: Bones: Acute appear compression fractures of T12 and L1 noted. Fracture lines do not extend to the posterior osseous elements. There is minimal posterior displacement of the cortex. No prominent spinal canal compromise. Soft tissues: Previously described lung findings are noted including collapse of the left lower lobe as well as infiltrate in the right lung base. NG tube noted. IMPRESSION: Acute fractures of T12 and L1 as described above. There is no acute compromise of the spinal canal a t these levels. If clinically indicated follow-up MRI can be performed RADIATION DOSE DELIVERED: Total DLP DATA REPOSITORY: All CT scans at this facility are submitted to the National Radiology Data Registry (NRDR) Dose Index Registry (DIR) with the [employer] ([employer]). RADIATION OPTIMIZATION: All CT scans at this facility use at least one of these dose optimization te chniques: automated exposure control; mA and/or kV adjustment per patient size (includes targeted exa ms where dose is matched to clinical indication); or iterative reconstruction.
[2020-08-21] MEDS: PROPOFOL 1,000 MG/100 ML BTL 4.98 MG IVPB (17:36)
[2020-08-21] MEDS: Normal Saline 1,000 ML 100 ML IV (18:10)
--- NOTE | 2020-08-21 18:18 | NUR.NOTE ---
1 bottle of propofol taken with medic to [facility] [place].Nursing Note:
--- NOTE | 2020-08-21 18:27 | CMACTNOTE_ITS ---
- If Service Date Differs Date of service: 08/21/20 Time of Service: 18:27 Care Management Activity Note Sung is transferred to [facility] [place] for further evaluation and treatment. At the request of Dr. Patterson, MELISSA telephones Sung's sister, Rose Marie, to ask if she has found someone to care for Sung's dog while he is at [facility] [place]. Rose Marie advises she has been in touch with his neighbors and a friend, Ana, and they are in the process of making arrangements for someone to care for the dog while Sung is away. She reports the house is unlocked and the neighbors are letting the dog out while Ana works on a better plan.
--- NOTE | 2020-08-23 11:32 | NUR.NOTE ---
Patient transferred to [facility] [place], Blood Culture report faxed to [facility], .Nursing Note:
[2020-08-24 10:07] LABS: Levetiracetam <2.0 mcg/mL
--- NOTE | 2020-08-24 14:29 | NUR.NOTE ---
Nursing Note: faxed blood culture results to [facility] [place] 08/24/20
--- NOTE | 2020-08-25 11:37 | NUR.NOTE ---
Addendum entered by Maya Kennedy 08/25/20 11:38: Dr Floresita friend. Original Note: Nursing Note: Faxed to [address] preliminary blood culture results. Maya Kennedy Fa [phone]
== END 2020-08-21 18:09 | disposition short-term general hospital (02) ==
PROVIDERS: Physician Assistant; Emergency Provider Physician Assistant; PCP Nurse Practitioner Family
DX: S22.081A Stable burst fracture of T11-T12 vertebra, initial encounter for closed fracture (principal); S32.011A Stable burst fracture of first lumbar vertebra, initial encounter for closed fracture; X58.XXXA Exposure to other specified factors, initial encounter; R56.9 Unspecified convulsions; R41.89 Other symptoms and signs involving cognitive functions and awareness; J18.9 Pneumonia, unspecified organism; Z20.822 Contact with and (suspected) exposure to COVID-19; I10 Essential (primary) hypertension; N32.0 Bladder-neck obstruction
CPT/HCPCS: 31500; 36416; 51702; 71275; 74177; 80053; 80307; 82805; 82962; 84145; 87040; 87077; 87637; 93005; 96361; 96365; 96366; 96368; 96375; 99291; 36600; 70450; 71045; 72125; 72128; 72131; 80177; 80320; 81003; 81015; 83605; 83735; 84484; 85025; 85610; 85730; 87086; 93010; J0131; J1953; J2060; J2543; J3490

== ENCOUNTER → 2020-12-27 09:28 | Outpatient (BNVA) | payer MEDICARE, MEDICAID, SELFPAY | PROVIDERS: PCP Nurse Practitioner Family; Referring Provider Nurse Practitioner Family; Visit Provider Psychiatry & Neurology Neurology | DX: R41.3 Other amnesia (principal); R56.9 Unspecified convulsions; E75.249 Niemann-Pick disease, unspecified; F10.21 Alcohol dependence, in remission | CPT/HCPCS: 99215; G2212 ==

== ENCOUNTER 2021-03-04 19:12 | Outpatient (REF) | payer MEDICARE, MEDICAID, SELFPAY ==
[2021-03-04 19:40] LABS: Abs Immature Grans 0.08 10^3/uL (0.0-0.06); Absolute Lymphocyte Count 3.96 10^3/uL (1.2-3.4); Eosinophils % 1.5; HCT 43.2 % (40.0-50.0); HGB 14.3 g/dL (13.5-17.5); Immature Grans % 0.6; Lymphocytes % 29.1; MCH 32.5 pg (27.0-33.0); MCHC 33.1 % (32.0-36.0); MCV 98.2 fL (80-95); MPV 10.9 fL (8.0-11.0); Neutrophils % 58.8; Nucleated RBC 0 %; Platelet Count 439 10^3/uL (130-400); RDW 14.6 % (11.8-14.1); RDW-SD 53.2 fL
[2021-03-04 19:42] LABS: Absolute Basophil Count 0.14 10^3/uL (0.0-0.2); Absolute Monocyte Count 1.22 10^3/uL (0.1-0.8)
[2021-03-04 19:45] LABS: ESR 29 mm/hr (0-20)
[2021-03-04 20:25] LABS: ALT 23 U/L (16-63); AST 17 U/L (15-37); Albumin 3.7 g/dL (3.4-5.0); Alkaline Phosphatase 106 U/L (46-116); Anion Gap 10.3 mmol/L (3-11); BUN 11 mg/dL (7-18); Bilirubin, Total 0.4 mg/dL (0.2-1.0); C-Reactive Protein 2.27 mg/dL (0.0-0.3); CO2 23.7 mmol/L (21.0-32.0); CREATININE 0.8 mg/dL (0.70-1.30); Calcium 9.3 mg/dL (8.5-10.1); Chloride 102 mmol/L (98-107); Glucose 85 mg/dL (74-106); Potassium 4.7 mmol/L (3.5-5.1); Sodium 136 mmol/L (136-145); Total Protein 7.7 g/dL (6.4-8.2); Uric Acid 4.5 mg/dL (3.5-7.2)
[2021-03-05 16:05] LABS: Rheumatoid Factor <8.6 IU/mL (<12.0)
[2021-03-06 10:28] LABS: Lyme Ab w Rflx to Lyme Confirm Negative (Negative)
[2021-03-07 18:39] LABS: Anaplasma phagocytophilum Negative (Negative); B. miyamotoi PCR Negative (Negative); Babesia divergens/MO-1 Negative (Negative); Babesia duncani Negative (Negative); Babesia microti Negative (Negative); Ehrlichia chaffeensis Negative (Negative); Ehrlichia ewingii/canis Negative (Negative); Ehrlichia muris eauclairensis Negative (Negative)
== END 2021-03-04 19:13 | disposition home or self-care (01) ==
LOC: LBN 19:12
PROVIDERS: PCP Nurse Practitioner Family; Visit Provider Nurse Practitioner Family
DX: M25.432 Effusion, left wrist (principal)
CPT/HCPCS: 80053; 85652; 87798; 84550; 85025; 86140; 86431; 86618

== ENCOUNTER 2022-09-01 02:56 | Outpatient (CLI) | payer MEDICARE, MEDICAID, SELFPAY ==
[2022-09-01 13:07] LABS: ALT 33 U/L (16-63); AST 28 U/L (15-37); Albumin 3.8 g/dL (3.4-5.0); Alkaline Phosphatase 94 U/L (46-116); Anion Gap 9.3 mmol/L (3-11); BUN 14 mg/dL (7-18); Bilirubin, Total 0.5 mg/dL (0.2-1.0); CO2 25.7 mmol/L (21.0-32.0); CREATININE 0.9 mg/dL (0.70-1.30); Calcium 9.3 mg/dL (8.5-10.1); Calculated LDL 174 mg/dL (<100); Chloride 102 mmol/L (98-107); Cholesterol 243 mg/dL (<200); Estimated GFR 92.45 (mL/min/1.73m2); Glucose 109 mg/dL (74-106); HDL Cholesterol 42 mg/dL (40-60); Potassium 4.2 mmol/L (3.5-5.1); Sodium 137 mmol/L (136-145); TSH (W/Ref FT4) 1.71 uIU/mL (0.36-3.74); Total Protein 7.9 g/dL (6.4-8.2); Triglyceride 136 mg/dL (<150)
== END 2022-09-01 02:57 | disposition home or self-care (01) ==
LOC: LOS 02:56
PROVIDERS: PCP Nurse Practitioner Family; Visit Provider Nurse Practitioner Family
DX: I10 Essential (primary) hypertension (principal); R41.3 Other amnesia; Z90.81 Acquired absence of spleen
CPT/HCPCS: 36415; 80053; 80061; 84443

== ENCOUNTER 2023-02-03 04:23 | Outpatient (CLI) | payer MEDICARE, MEDICAID, SELFPAY ==
[2023-02-03 12:52] LABS: Calculated LDL 98 mg/dL (<100); Cholesterol 158 mg/dL (<200); HDL Cholesterol 45 mg/dL (40-60); Triglyceride 76 mg/dL (<150)
== END 2023-02-03 04:24 | disposition home or self-care (01) ==
PROVIDERS: PCP Nurse Practitioner Family; Visit Provider Nurse Practitioner Family
DX: E78.5 Hyperlipidemia, unspecified (principal)
CPT/HCPCS: 36415; 80061

== ENCOUNTER 2024-01-19 04:25 | Outpatient (CLI) | payer MEDICARE, MEDICAID, SELFPAY ==
[2024-01-19 12:21] LABS: Anion Gap 7.2 mmol/L (3-11); BUN 14 mg/dL (7-18); CO2 28.8 mmol/L (21.0-32.0); CREATININE 1.1 mg/dL (0.70-1.30); Calcium 9.5 mg/dL (8.5-10.1); Chloride 103 mmol/L (98-107); Estimated GFR 71.77 (mL/min/1.73m2); Glucose 97 mg/dL (74-106); Potassium 3.9 mmol/L (3.5-5.1); Sodium 139 mmol/L (136-145)
[2024-01-19 19:37] LABS: PSA, Diagnostic 5.1 ng/mL (<=6.5)
[2024-01-19 20:22] LABS: Hepatitis C Ab w Rflx HCV PCR Negative (Negative)
== END 2024-01-19 04:26 | disposition home or self-care (01) ==
LOC: LOS 04:25
PROVIDERS: PCP Nurse Practitioner Family; Visit Provider Nurse Practitioner Family
DX: Z00.00 Encounter for general adult medical examination without abnormal findings (principal); I10 Essential (primary) hypertension; R35.1 Nocturia
CPT/HCPCS: 36415; 80048; 86803; 84153

== ENCOUNTER 2025-06-07 01:30 | Outpatient (CLI) | payer MEDICARE, MEDICAID, SELFPAY ==
[2025-06-07 09:48] LABS: Abs Immature Grans 0.04 10^3/uL (0.0-0.06); HCT 42.7 % (40.0-50.0); HGB 14.4 g/dL (13.5-17.5); Immature Grans % 0.4 %; MCH 32.1 pg (27.0-33.0); MCHC 33.7 % (32.0-36.0); MCV 95 fL (80-95); MPV 10.2 fL (8.0-11.0); Platelet Count 305 10^3/uL (130-400); RBC 4.48 10^6/uL (4.36-5.78); RDW 14.6 % (11.8-14.1); RDW-SD 52.0 fL; WBC 10.68 10^3/uL (4.4-10.8)
[2025-06-07 10:16] LABS: RBC Morphology Normal
[2025-06-07 10:24] LABS: Glucose Negative (Negative)
[2025-06-07 10:33] LABS: ALT 31 U/L (10-49); AST 28 U/L (<34); Albumin 4.4 g/dL (3.2-5.0); Alkaline Phosphatase 108 U/L (46-116); Anion Gap 5 mmol/L (3-11); BUN 12 mg/dL (9-23); Bilirubin, Total 0.60 mg/dL (0.2-1.2); CO2 28.0 mmol/L (20.0-31.0); Calcium 9.1 mg/dL (8.3-10.6); Chloride 109 mmol/L (98-107); Cholesterol 157 mg/dL (<200); Glucose 103 mg/dL (74-106); HDL Cholesterol 44 mg/dL (>40); Potassium 3.8 mmol/L (3.5-5.1); Sodium 142 mmol/L (136-145); Total Protein 7.6 g/dL (5.7-8.2)
[2025-06-07 18:40] LABS: PSA, Screening 6.6 ng/mL (<=6.5)
== END 2025-06-07 01:31 | disposition home or self-care (01) ==
LOC: LBO 01:30
PROVIDERS: PCP Nurse Practitioner Family; Visit Provider Nurse Practitioner Family
DX: E78.5 Hyperlipidemia, unspecified (principal); Q89.01 Asplenia (congenital); N40.1 Benign prostatic hyperplasia with lower urinary tract symptoms; N13.8 Other obstructive and reflux uropathy; F10.21 Alcohol dependence, in remission
CPT/HCPCS: 36415; 80053; 80061; 84153; 81003; 85025